=== PATIENT | male | born 1970 | race American Indian/Alaskan Native ===

== ENCOUNTER 2017-08-23 22:52 | Emergency (ER) | payer BC ==
[2017-08-24 01:05] VITALS: BP 126/91
[2017-08-24] MEDS ORDERED: NORCO 5/325 PO ONE (01:47)
--- NOTE | 2017-08-24 01:52 | Emergency Department Report ---
Upper Extremity - HPI Chief Complaint: Extremity Injury, Upper Stated Complaint: ARM PAIN Time Seen by Provider: 08/24/17 01:41 Upper Extremity: Left Shoulder, Left Wrist Occurred When: >5 Days Mechanism: Unsure Symptoms: Yes Pain with Movement, Yes Limited Range of Movement, Yes Weakness, No Deformity, No Numbness, No Swelling, No Bruising/Ecchymosis, No Laceration or Abrasion Other History: Mr. Andrea has pain in left wrist and hand for 10 days. Burning pain, worse with making a fist. No weakness but severe pain with finger flexion. Gradual onset of pain. No shoulder or elbow pain. Works for [employer], office jobs, uses computer keyboard. ED Review of Systems ROS: Stated complaint: ARM PAIN Other details as noted in HPI Constitutional: denies: fever, malaise Respiratory: denies: cough Cardiovascular: denies: chest pain Neurological: denies: headache, weakness, numbness, paresthesias, confusion, abnormal gait ED Past Medical Hx - Past Medical History Hx Hypertension: Yes Hx Diabetes: Yes (new onset- 06/26/17) - Surgical History Additional Surgical History: lumbar sx, 2016, L4-L5 - Social History Smoking Status: Never Smoker Substance Use Type: Alcohol, Marijuana - Medications Home Medications: Home Medications Medication Instructions Recorded Confirmed Last Taken Type Naproxen 500 mg PO BID 10 Days #20 tablet 08/24/17 Unknown Rx Upper Extremity Exam - Exam General: Vital signs noted. No distress. Alert and acting appropriately. +pain with radial deviation of hand Head and Torso: No HEENT Abnormality, No Chest/Lungs Abnormality, No Abdominal Tenderness Shoulder Exam: Yes Normal Range of Motion in Shoulder, No Shoulder Tenderness, No Clavicle Tenderness, No Shoulder Deformity, No AC Joint Tenderness Arm Exam: No Arm/Humerus Tenderness, No Arm Deformity Elbow: Yes Normal Range of Motion in Elbow, No Elbow Tenderness, No Elbow Deformity Forearm: No Forearm Tenderness, No Forearm Deformity, No Pain with Pronation, No Pain with Supination Wrist: Yes Normal ROM in Wrist, No Wrist Tenderness, No Wrist Deformity, No Snuffbox Tenderness, No Pain with Axial Thumb Compression Hand: Yes Normal ROM in Digit(s), No Hand Tenderness, No Hand Deformity, No Digit Tenderness, No Digit(s) Deformity, No Tendon Dysfunction CMS Exam: Yes Normal Distal Pulses, Yes Normal Capillary Refill, Yes Normal Distal Sensation, No Broken Skin ED Course Vital Signs 08/23/17 08/23/17 08/24/17 22:52 23:13 01:05 Temperature 98.3 F 98.3 F 98.0 F Pulse Rate 90 90 76 Respiratory 20 20 20 Rate Blood Pressure 147/90 147/90 Blood Pressure 126/91 [Left] O2 Sat by Pulse 96 96 100 Oximetry ED Medical Decision Making - Medical Decision Making Suspect carpal tunnel. Patient's pain improved with wrist brace applied to left upper extremity under my supervision. Referred to PCP and orthopedic surgeon rx: naproxen Critical care attestation.: If time is entered above; I have spent that time in minutes in the direct care of this critically ill patient, excluding procedure time. ED Disposition Clinical Impression: Carpal tunnel syndrome of left wrist Disposition: DC-01 TO HOME OR SELFCARE Is pt being admited?: No Does the pt Need Aspirin: No Condition: Stable Instructions: Carpal Tunnel Syndrome (ED) Prescriptions: Naproxen 500 mg PO BID 10 Days #20 tablet Forms: Work/School Release Form(ED) Time of Disposition: 01:54
== END 2017-08-24 03:13 | disposition home or self-care (01) ==
LOC: ED 22:52
DX: G56.02 Carpal tunnel syndrome, left upper limb (principal); I10 Essential (primary) hypertension; E11.9 Type 2 diabetes mellitus without complications; F12.10 Cannabis abuse, uncomplicated
CPT/HCPCS: 93005; 93010; 99282